=== PATIENT | female | born 1975 | race Caucasian/White ===

== ENCOUNTER 2019-10-05 15:38 | Emergency (ER) | payer BC ==
[~2019-10-05] VITALS: Ht 157.5 cm; Wt 62.6 kg
[2019-10-05 15:43] VITALS: BP 121/79; Ht 157.5 cm; Wt 62.6 kg
== END 2019-10-05 16:34 | disposition home or self-care (01) ==
LOC: ED 15:38
DX: N83.202 Unspecified ovarian cyst, left side (principal); D25.9 Leiomyoma of uterus, unspecified